=== PATIENT | female | born 1980 | race Caucasian/White ===

== ENCOUNTER → 2023-02-07 19:00 | Outpatient (BNV) | payer OTHER, SELFPAY | PROVIDERS: PCP Internal Medicine; Visit Provider Psychiatry & Neurology Neurology | DX: G47.33 Obstructive sleep apnea (adult) (pediatric) (principal) | CPT/HCPCS: 95810 ==

== ENCOUNTER → 2023-02-07 20:30 | Outpatient (REF) | payer OTHER, SELFPAY | LOC: HO.SL 20:30 | PROVIDERS: PCP Internal Medicine; Visit Provider Internal Medicine | DX: G47.10 Hypersomnia, unspecified (principal) | CPT/HCPCS: 95810 ==

== ENCOUNTER 2023-09-10 07:59 | Outpatient (AMB) | payer OTHER, SELFPAY ==
--- NOTE | 2023-09-10 08:10 | MHC.OFFVIS ---
Vital Signs 09/10/23 08:24 Height 5 ft 7 in Weight 227 lb 6 oz BMI 35.6 BP 112/58 L Blood Pressure Location Rt brachial Position Sitting Respiration 16 Pulse 74 Pulse Source Pulse Oximeter Pulse Oximetry (%) 97 Oxygen Delivery Method Room Air Intake Visit Reasons: [id number] Intake Note: Pt presents for new pt evaluation for periodic limb movement disorder. Construction Technician Required: No Allergies No Known Allergies [No Known Allergies*] Allergy (Verified 09/10/23 08:11) Medication List - Last Reconciled 09/10/23 by Muna Haddad MD armodafinil 150 mg PO QAM buspirone 20 mg PO BID ferrous gluconate 324 mg PO DAILY gabapentin 200 mg PO BEDTIME ipratropium bromide 2 sprays intranasal BID melatonin 3 mg PO BEDTIME PRN naltrexone 50 mg PO DAILY pramipexole 0.125 mg orally 1 qama nd 2 qhs; HPI Comments Details: 43y/o female with a complex psychiatric disorder-anxiety,depression, PTSD, adjustment disorder comes for further managemnt of periodic climb movement disorder.she had a sleep study on Jan 2023 for excessive daytime fatigue Her sleep study did not meet the criteria for sleep apnea or periodic limb movement disorder . The PLM index was 33 but arousal index was 3 AHI was0.2 with 92 % oxygen lan.Her ferritin level was checked - it was 69 . she was started on iron supplements. she was recently started on pramipexole -.125 mg qam and 2 tabs qhs she feels she is sleeping better and less daytime sleepiness she is also on gabapentin 200mg qhs she reports creepy crawly sensations - mostly on the legs but can be whole body and she wake sup in the middle of night. Pramipexole has helped.No restlessness during daytime. it usuallya starts around 8 pm and moving around helps sometimes. [facility] Medical History (Updated 09/10/23 @ 09:04 by Muna Haddad MD) Thrombocytosis Chronic sinusitis Anxiety Depression Fatigue Restless legs syndrome (RLS) Surgical History (Updated 09/10/23 @ 08:30 by Bushra Alvarez CMA) H/O sinus surgery Family History (Updated 09/10/23 @ 08:31 by Bushra Alvarez CMA) Father No problems noted. Mother Rheumatoid arthritis Sister Psoriatic arthritis Social History (Updated 09/10/23 @ 08:32 by Bushra Alvarez CMA) Household Members: None Household Members Other:: Pets- Dogs Housing: House Alcohol intake: former Patient Tobacco Use Status: Never used Tobacco Physical Exam Vital Signs: Last Vital Signs Pulse 74 09/10/23 08:24 Resp 16 09/10/23 08:24 BP 112/58 L 09/10/23 08:24 Pulse Ox 97 09/10/23 08:24 Oxygen Delivery Method Room Air 09/10/23 08:24 BMI result Body Mass Index 35.6 Const General: cooperative, healthy appearing, comfortable and no acute distress Nutritional Appearance: overweight Orientation/consciousness: patient oriented x3 Eyes Pupils: Equal, round and reactive pupils present Neuro General: patient oriented x3, gait normal, tone normal, moves all extremities and no focal motor deficits Cranial nerves: Yes Facial sensation intact/muscles of mastication intact, Yes Equal, round and reactive pupils present, Yes Bilaterally intact EOM present, Yes Nystagmus not present, Yes Normal facial strength present, Yes Midline tongue present and Yes Symmetric palate elevation present Cognition (Neuro): normal cognition Gait exam (Neuro): Normal gait present Motor exam (neuro): 5/5 motor strength present throughout, no tremor noted and Normal motor muscle tone present throughout Deep tendon reflexes (DTR's): Right triceps reflex intensity grade: 2+, Left triceps reflex intensity grade: 2+, Rt Biceps (C5, C6): 2+, Left biceps reflex intensity grade: 2+, Right brachioradialis reflex intensity grade: 2+, Left brachioradialis reflex intensity grade: 2+, Right patellar reflex intensity grade: 2+ and Left patellar reflex intensity grade: 2+ Coordination: [id number] test normal Assessment & Plan Assessment & Plan (1) Restless legs syndrome (RLS): Comment: with PLMS not associated with arousals Code(s): G25.81 - Restless legs syndrome Category: Medical (2) Fatigue: Comment: multifactorial, medications, mood, low iron - better now Code(s): R53.83 - Other fatigue Category: Medical Plan I suggested to stop pramipexole in the morning ( she is asymptomatic during daytime) and continue pramipexole 0.125 mg 2 tabs qhs continue gabapentin 200mg qhs Increase iron rich food Ferrous sulfate 325 mg qd with Vit C
[2023-09-10 08:24] VITALS: BP 112/58; PULSE 74; RESP 16; O2SAT 97; BMI 35.6
== END 2023-09-10 08:57 | disposition home or self-care (01) ==
PROVIDERS: PCP Internal Medicine; Visit Provider Psychiatry & Neurology Neurology
DX: G25.81 Restless legs syndrome (principal); R53.83 Other fatigue
CPT/HCPCS: 99214

== ENCOUNTER → 2023-09-10 07:59 | Outpatient (BNVA) | payer OTHER, SELFPAY | PROVIDERS: PCP Internal Medicine; Visit Provider Psychiatry & Neurology Neurology | DX: G25.81 Restless legs syndrome (principal); R53.83 Other fatigue; Z79.899 Other long term (current) drug therapy | CPT/HCPCS: 99212 ==